=== PATIENT | female | born 1985 | race Hispanic/Latino ===

== ENCOUNTER 2021-12-04 22:48 | Emergency (ER) | payer OTHER ==
--- NOTE | 2021-12-05 01:28 | ER ---
Nurse's Notes [facility] Name: Florencia Baker Age: 36 yrs Sex: Female : 1985 Arrival Date: 12/04/2021 Time: 22:52 Bed 10 Private MD: Diagnosis: SARS-associated coronavirus as the cause of diseases classified elsewhere Presentation: 12/04 23:20 Chief complaint: Patient states: I have been not feeling well for the past two days. I kd3 have had a headache and now I have a cough. a few people at my work have tested positive for covid so I wanted to get checked out. Coronavirus screen: Vaccine status: Patient reports being unvaccinated. Ebola Screen: No symptoms or risks identified at this time. Initial Sepsis Screen: Does the patient meet any 2 criteria? No. Patient's initial sepsis screen is negative. Does the patient have a suspected source of infection? No. Patient's initial sepsis screen is negative. Risk Assessment: Do you want to hurt yourself or someone else? Patient reports no desire to harm self or others. Onset of symptoms was December 04, 2021. 23:20 Method Of Arrival: Ambulatory kd3 23:20 Acuity: KIRTI 4 kd3 Triage Assessment: 23:23 General: Appears in no apparent distress. Behavior is calm, cooperative. Pain: kd3 Complains of pain in headache. 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 - Social history:: Smoking status: unknown. Screenin:24 Abuse screen: Denies threats or abuse. Denies injuries from another. Nutritional kd3 screening: No deficits noted. Tuberculosis screening: No symptoms or risk factors identified. Fall Risk None identified. Assessment: 12/05 01:33 General: Appears in no apparent distress. Behavior is calm, cooperative. kd3 Vital Signs: 12/04 23:20 BP 112 / 79; Pulse 70; Resp 18; Temp 98.2; Pulse Ox 100% on R/A; Weight 61.23 kg; kd3 Height 5 ft. (152.40 cm); Pain 4/10; 12/05 01:33 BP 109 / 71; Pulse 72; Resp 16; Pulse Ox 100% on R/A; kd3 06/28 23:20 Body Mass Index 26.37 (61.23 kg, 152.40 cm) kd3 ED Course: 12/04 22:52 Patient arrived in ED. ja2 23:09 Nishant Her MD is Attending Physician. kdr 23:20 Leticia Galeas, RN is Primary Nurse. kd3 23:23 Triage completed. kd3 23:23 Arm band placed on right wrist. kd3 23:24 Patient has correct armband on for positive identification. kd3 23:24 No provider procedures requiring assistance completed. kd3 12/05 01:33 Patient did not have IV access during this emergency room visit. kd3 Administered Medications: No medications were administered Medication: 12/04 23:24 VIS not applicable for this client. kd3 Outcome: 12/05 01:28 Discharge ordered by . kdr 01:33 Discharged to home ambulatory. kd3 01:33 Condition: stable 01:33 Discharge instructions given to patient, Instructed on discharge instructions, follow up and referral plans. Demonstrated understanding of instructions, follow-up care. 01:34 Patient left the ED. kd3 Signatures: Nishant Her MD MD [facility] Tricia Fowler 2 Leticia Galeas, RN RN kd3
--- NOTE | 2021-12-05 01:28 | EDPHYS ---
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 - Social history:: Smoking status: unknown. Vital Signs: 23:20 BP 112 / 79; Pulse 70; Resp 18; Temp 98.2; Pulse Ox 100% on R/A; Weight 61.23 kg; kd3 Height 5 ft. (152.40 cm); Pain 09/16; 12/05 01:33 BP 109 / 71; Pulse 72; Resp 16; Pulse Ox 100% on R/A; kd3 12/04 23:20 Body Mass Index 26.37 (61.23 kg, 152.40 cm) kd3 MDM: 01:28 Patient medically screened. kdr 12/04 23:11 Order name: Strep; Complete Time: 00:29 mw2 12/04 23:11 Order name: Flu; Complete Time: 00:29 mw2 12/04 23:11 Order name: COVID-19 SARS RT PCR (Document "Date of Onset" if Symptomatic); Complete mw2 Time: 01:08 12/05 00:20 Order name: Throat Culture EDMS Administered Medications: No medications were administered Disposition Summary: 12/05/21 01:28 Discharge Ordered Location: Home kdr Problem: new kdr Symptoms: have improved kdr Condition: Stable kdr Diagnosis - SARS-associated coronavirus as the cause of diseases classified elsewhere kdr Followup: kdr - With: Private Physician - When: 2 - 3 days - Reason: If symptoms return, Further diagnostic work-up, Recheck today's complaints, Continuance of care, Re-evaluation by your physician Discharge Instructions: - Discharge Summary Sheet kdr - COVID-19 kdr - 10 Things You Can Do to Manage Your COVID-19 Symptoms at Home - [facility] kdr - Viral Illness, Adult kdr - COVID-19: Quarantine vs. Isolation - [facility] kdr - Prevent the Spread of COVID-19 if You Are Sick - [facility] kdr Forms: - Medication Reconciliation Form kdr - Thank You Letter kdr Signatures: Dispatcher [employer] Nishant Dennison MD MD kdr Doucette, Kyli RN RN kd3
[2021-12-05 02:38] VITALS: TEMP 98.2; O2SAT 100
[2021-12-05 02:39] VITALS: BP 109/71
== END 2021-12-05 01:34 | disposition home or self-care (01) ==
LOC: ER 22:48
DX: U07.1 COVID-19 (principal)
CPT/HCPCS: 87070; 87081; 87804 ×2; U0003

== ENCOUNTER 2021-12-11 15:35 | Emergency (ER) | payer OTHER ==
--- NOTE | 2021-12-11 16:11 | ER ---
Nurse's Notes [facility] Name: Florencia Baker Age: 36 yrs Sex: Female : 1985 Arrival Date: 12/11/2021 Time: 15:37 Bed 11 Private MD: Diagnosis: Strain of muscle, fascia and tendon at neck level Presentation: 12/11 15:51 Chief complaint: Patient states: COVID + - "coughing so hard I think I injured ld1 something in the left side of my neck.". Coronavirus screen: Client presents with at least one sign or symptom that may indicate coronavirus-19. Standard/surgical mask placed on the client. Ebola Screen: No symptoms or risks identified at this time. Initial Sepsis Screen: Does the patient meet any 2 criteria? No. Patient's initial sepsis screen is negative. Does the patient have a suspected source of infection? No. Patient's initial sepsis screen is negative. Risk Assessment: Do you want to hurt yourself or someone else? Patient reports no desire to harm self or others. Onset of symptoms was December 11, 2021. 15:51 Method Of Arrival: Ambulatory ld1 15:51 Acuity: KIRTI 3 ld1 Triage Assessment: 15:52 General: Appears in no apparent distress. comfortable, Behavior is calm, cooperative, ld1 appropriate for age. Pain: Complains of pain in neck Pain does not radiate. Pain currently is 8 out of 10 on a pain scale. EENT: No signs and/or symptoms were reported regarding the EENT system. Neuro: Level of Consciousness is awake, alert, obeys commands, Oriented to person, place, time, situation. Cardiovascular: Capillary refill < 3 seconds Patient's skin is warm and dry. Respiratory: Airway is patent Respiratory effort is even, unlabored. Musculoskeletal: Reports pain in neck. 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 - Social history:: Smoking status: Patient denies any tobacco usage or history of. Patient/guardian denies using alcohol. Screenin:52 Abuse screen: Denies threats or abuse. Denies injuries from another. Nutritional iw screening: No deficits noted. Tuberculosis screening: No symptoms or risk factors identified. Fall Risk None identified. Assessment: 16:00 General: Appears in no apparent distress. comfortable, Behavior is calm, cooperative. iw Pain: Complains of pain in neck. Neuro: Level of Consciousness is awake, alert, obeys commands, Oriented to person, place, time. Respiratory: Respiratory effort is even, unlabored. 17:01 Reassessment: Patient appears in no apparent distress at this time. Patient and/or jb4 family updated on plan of care and expected duration. Pain level reassessed. Patient is alert, oriented x 3, equal unlabored respirations, skin warm/dry/pink. Vital Signs: 15:51 BP 113 / 81; Pulse 86; Resp 18; Temp 99.0(O); Pulse Ox 99% on R/A; Weight 61.23 kg; ld1 Height 5 ft. 0 in. (152.40 cm); Pain 8/10; 15:51 Body Mass Index 26.37 (61.23 kg, 152.40 cm) ld1 ED Course: 15:37 Patient arrived in ED. mr 15:52 Triage completed. ld1 15:52 Arm band placed on right wrist. ld1 16:00 Pat Redman FNP-C is PHCP. kb 16:00 Kirit Kaur DO is Attending Physician. kb 16:51 Sherry Booker, RN is Primary Nurse. iw 17:01 Patient has correct armband on for positive identification. jb4 17:01 No provider procedures requiring assistance completed. Patient did not have IV access jb4 during this emergency room visit. Administered Medications: 17:01 Drug: TORadol (ketorolac) 30 mg Route: IM; Site: right deltoid; jb4 17:01 Follow up: Response: Medication administered at discharge. jb4 Medication: 17:01 VIS not applicable for this client. jb4 Outcome: 16:10 Discharge ordered by . kb 17:01 Discharged to home ambulatory. jb4 17:01 Condition: stable 17:01 Discharge instructions given to patient, Instructed on discharge instructions, follow up and referral plans. no drinking with medication, no driving heavy equipment, medication usage, Demonstrated understanding of instructions, follow-up care, medications, Prescriptions given X 3. 17:03 Patient left the ED. jb4 Signatures: Pat Redman, ZAY SALDANA-Helen Orantes Irene, RN RN iw Blu Grewal RN RN jb4 Enedelia Tellez RN RN ld1
--- NOTE | 2021-12-11 16:11 | EDPHYS ---
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 - Social history:: Smoking status: Patient denies any tobacco usage or history of. Patient/guardian denies using alcohol. Vital Signs: 15:51 BP 113 / 81; Pulse 86; Resp 18; Temp 99.0(O); Pulse Ox 99% on R/A; Weight 61.23 kg; ld1 Height 5 ft. 0 in. (152.40 cm); Pain 8/10; 15:51 Body Mass Index 26.37 (61.23 kg, 152.40 cm) ld1 MDM: 16:00 Patient medically screened. kb Administered Medications: 17:01 Drug: TORadol (ketorolac) 30 mg Route: IM; Site: right deltoid; jb4 17:01 Follow up: Response: Medication administered at discharge. jb4 Disposition Summary: 12/11/21 16:10 Discharge Ordered Location: Home kb Condition: Stable kb Diagnosis - Strain of muscle, fascia and tendon at neck level kb Followup: kb - With: Emergency Department - When: As needed - Reason: Worsening of condition Followup: kb - With: Private Physician - When: 2 - 3 days - Reason: Recheck today's complaints, Continuance of care, Re-evaluation by your physician Discharge Instructions: - Discharge Summary Sheet kb - Muscle Strain, [id number] kb Forms: - Medication Reconciliation Form kb - Thank You Letter kb - Antibiotic Education kb - Prescription Opioid Use kb - Work release form iw Prescriptions: - Ibuprofen 600 mg Oral Tablet - take 1 tablet by ORAL route every 6 hours As needed take with food; 30 tablet; kb Refills: 0, Product Selection Permitted - Tessalon Perles 100 mg Oral Capsule - take 1 capsule by ORAL route every 8 hours As needed; 15 capsule; Refills: 0, kb Product Selection Permitted - orphenadrine citrate 100 mg Oral Tablet Sustained Release - take 1 tablet by ORAL route 2 times per day As needed; 20 tablet; Refills: 0, kb Product Selection Permitted Signatures: Pat Redman FNP-C FNP-Ckb Bryson, James RN RN jb4 Enedelia Tellez RN RN ld1
[2021-12-11] MEDS ORDERED: KETOROLAC 30 MG/ML INJ ONE (17:03)
[2021-12-11 17:33] VITALS: BP 113/81; TEMP 99; O2SAT 99
== END 2021-12-11 17:03 | disposition home or self-care (01) ==
LOC: ER 15:35
DX: S16.1XXA Strain of muscle, fascia and tendon at neck level, initial encounter (principal)

== ENCOUNTER 2022-11-30 02:12 | Emergency (ER) | payer OTHER ==
--- OUTSIDE RECORDS SUMMARY | 2022-11-30 02:16 | XMS REPORT | Continuity of Care Document ---
:1985 Author Organization [facility] t Address [address] [address] [place] [address] Care Team Providers Name Role Phone GoshenNicky zacarias Attending Clinician Unavailable SOLEDAD JUAREZ M.D. Attending Clinician Unavailable JOSHUA ORDONEZ Attending Clinician [phone] NAILA OJNES Attending Clinician [phone] BRODERICK SAHNI Attending Clinician [phone] [facility], PROVIDER Attending Clinician Unavailable PRISCILLA WU Attending Clinician [phone] CÉSAR LUKE Attending Clinician [phone] NINFA WIN Attending Clinician [phone] BRIGIDO RIVERA Attending Clinician Unavailable Problems Condition Condition Condition Status Onset Resolution Last Treating Co mments Source Name Details Category Date Date Treatment Clinician Date Encounter Encounter Problem Active [facility] for [facility] for repeat [facility] Pap smear Pap smear ans due to due to previous previous insufficie insufficie nt nt cervical cervical cells cells [id number] Low iron Problem Comm on [facility] [id number] Slow Problem Common transit [facility] constipati - [facility] [id number] Strain of Problem Com mon neck [facility] muscle, - [facility] initial [facility] Allergies, Adverse Reactions, Alerts This patient has no known allergies or adverse reactions. Family History Family Member Diagnosis Comments Start Date Stop Date Source Grandmother Family history of malignant [facility] neoplasm of breast Grandmother Family history of malignant [facility] neoplasm of colon aunt Family history of malignant [facility] neoplasm of cervix Mother Family history of malignant [facility] neoplasm of breast Social History Social Habit Start Date Stop Date Quantity Comments Source Sex Assigned At Com mon [facility] History of Tobacco Use Co mmon [facility] Smoking Status Start Date Stop Date Source Unknown if ever smoked [facility] Never Smoker [facility] Medications Ordered Filled Start Stop Current Ordering Indication Dosage Frequency Signature Comments Components Source Medication Medication Date Date Medication? Clinician (SIG) Name Name No Known No Known No Common Medications Medications [facility] No Known No Known No Common Medications Medications [facility] Vital Signs Vital Name Observation Time Observation Value Comments Source height 2022-02-13 59.5 [in_i] [facility] [place] [facility] weight 2022-02-13 134.8 [lb_av] [facility] [place] [facility] temperature 2022-02-13 97.9 [degF] [facility] [place] 14:[facility]00 [facility] bmi 2022-02-13 26.77 kg/m2 [facility] [place] 14:[facility]00 [facility] oximetry 2022-02-13 100 % [facility] [place] 14:[facility] respiratory rate 2022-02-13 16 /min [facility] - 14:00:00 [facility] blood pressure 2022-02-13 98 mm[Hg] [facility] [place] - systolic 14:00:00 [facility] blood pressure 2022-02-13 56 mm[Hg] [facility] height 2021-12-20 [facility] - 15:20:00 [facility] weight 2021-12-20 131.2 [lb_av] [facility] [place] 15:20:00 [facility] temperature 2021-12-20 97.2 [degF] [facility] [place] 15:20:00 [facility] bmi 2021-12-20 26.05 kg/m2 [facility] - [facility] oximetry 2021-12-20 100 % [facility] [place] 15:20:00 [facility] respiratory rate 2021-12-20 16 /min [facility] - 15:20:00 [facility] blood pressure 2021-12-20 100 mm[Hg] [facility] - systolic 15:20:00 [facility] blood pressure 2021-12-20 65 mm[Hg] [facility] - diastolic 15:20:00 [facility] Systolic blood 2020-02-21 110 mm[Hg] Location: [facility] Physicia ns pressure 14:32:00 Position: Sitting Diastolic blood 2020-02-21 70 mm[Hg] Location: [facility] Physici ans pressure 14:32:00 Position: Sitting Body height 2020-02-21 60 [in_us] [facility] 14:32:00 Weight 2020-02-21 125 [lb_av] [facility] 14:32:00 Body mass index 2020-02-21 24.41 kg/m2 [facility] (BMI) [Ratio] 14:32:00 Body temperature 2020-02-21 98.5 [degF] Method: [facility] 14:32:00 Temporal Heart Rate 2020-02-21 68 /min [facility] 14:32:00 Body height 2018-08-10 60.00 [in_us] [facility] 09:25:00 Patient Body Weight 2018-08-10 117.60 [lb_av] [facility] 09:25:00 Int[facility] 2018-08-10 106 mm[Hg] [facility] Systolic 09:25:00 Intravascular 2018-08-10 60 mm[Hg] [facility] Diastolic 09:25:00 Heart Beat 2018-08-10 66 /min [facility] 09:25:00 Body Temperature 2018-08-10 97.70 [degF] [facility] 09:25:00 Respiratory Rate 2018-08-10 16 /min [facility] 09:25:00 Body mass index 2018-08-10 23.00 kg/m2 [facility] 09:25:00 Body height 2017-03-19 60.00 [in_us] [facility] 15:12:00 Patient Body Weight 2017-03-19 120.60 [lb_av] [facility] 15:12:00 Intravascular 2017-03-19 101 mm[Hg] [facility] Systolic 15:12:00 Intravascular 2017-03-19 55 mm[Hg] [facility] Diastolic 15:12:00 Heart Beat 2017-03-19 63 /min [facility] 15:12:00 Body Temperature 2017-03-19 96.40 [degF] [facility] 15:12:00 Respiratory Rate 2017-03-19 18 /min [facility] 15:12:00 Body mass index 2017-03-19 23.60 kg/m2 [facility] 15:12:00 Body height 2017-02-27 60.00 [in_us] [facility] 16:50:00 Patient Body Weight 2017-02-27 120.00 [lb_av] [facility] 16:50:00 Intravascular 2017-02-27 91 mm[Hg] [facility] Systolic 16:50:00 Intravascular 2017-02-27 50 mm[Hg] [facility] Diastolic 16:50:00 Heart Beat 2017-02-27 78 /min [facility] 16:50:00 Body Temperature 2017-02-27 96.90 [degF] [facility] 16:50:00 Respiratory Rate 2017-02-27 18 /min [facility] 16:50:00 Body mass index 2017-02-27 23.40 kg/m2 [facility] 16:50:00 Intravascular 2016-12-30 92 mm[Hg] [facility] Systolic 11:12:00 Intravascular 2016-12-30 56 mm[Hg] [facility] Diastolic 11:12:00 Heart Beat 2016-12-30 67 /min [facility] 11:04:00 Body Temperature 2016-12-30 97.40 [degF] [facility] 11:04:00 Respiratory Rate 2016-12-30 16 /min [facility] 11:04:00 Body mass index 2016-12-30 22.70 kg/m2 [facility] 11:04:00 Body height 2016-12-30 60.00 [in_us] [facility] 11:04:00 Patient Body Weight 2016-12-30 116.41 [lb_av] [facility] 11:04:00 Intravascular 2016-12-30 93 mm[Hg] [facility] Systolic 11:04:00 Intravascular 2016-12-30 52 mm[Hg] [facility] Diastolic 11:04:00 Body height 2016-03-20 60.00 [in_us] [facility] 11:28:00 Patient Body Weight 2016-03-20 114.80 [lb_av] [facility] 11:28:00 Intravascular 2016-03-20 103 mm[Hg] [facility] Systolic 11:28:00 Intravascular 2016-03-20 69 mm[Hg] [facility] Diastolic 11:28:00 Heart Beat 2016-03-20 62 /min [facility] 11:28:00 Body Temperature 2016-03-20 96.90 [degF] [facility] 11:28:00 Respiratory Rate 2016-03-20 16 /min [facility] 11:28:00 Body mass index 2016-03-20 22.40 kg/m2 [facility] 11:28:00 Procedures Procedure Date / Time Performed Performing Clinician Sourc e DENTAL PROPHYLAXIS ADULT 2019-05-04 00:[facility] ADMINISTRATOR-CONTROL 2019-05-04 00:00:[facility] CARIES ORAL HYGIENE INSTRUCTION 2019-05-04 00:00:[address] [facility] TOPICAL FLUORIDE VARNISH 2019-05-04 00:00:00 [facility] SR[facility] RESINBASED CMPST 2019-05-04 00:00:00 [facility] TREATMENT COMPLETED 2019-05-04 00:00:00 [facility] PERIODIC ORAL EVALUATION 2019-04-20 00:00:[address] [facility] DENTAL BITEWINGS FOUR FILMS 2019-04-20 00:00[facility] PERI[facility] FIRST 2019-04-20 00:00:00 A [facility] INTRAORAL PERIAPICAL EA ADD 2019-04-20 00:00[facility] D[facility] PANORAMIC FILM 2019-04-20 00:00:00 [facility] TREATMENT INITIATED 2019-04-20 00:00:00 [facility] of [facility]domin[facility] of Tubal Ligation [facility] of Tubal ligation [facility] reversal Encounters Start End Encounter Admission Attending Care Care Encounter Source Date/Time Date/Time Type Type Clinicians Facility Department ID 2021-12-20 Outpatient [place], [facility] [id number] Common 14:37:02 [facility] 2022-03-19 2022-03-19 (TEL) [facility] [id number] Co mmon 00:00:00 00:00:00 [facility] 2022-02-13 2022-02-13 PREV VISIT [facility] [id number] Common 00:00:00 00:00:00 EST AGE [facility] 18-40 - [facility] 2021-12-20 2021-12-20 OFFICE [facility] [id number] Co mmon 00:00:00 00:00:00 VISIT NEW [facility] it PT LEVEL [address] [facility] 2020-02-21 2020-02-21 Appointjoshua JUAREZ ДМИТРИЙ CHOE [id number] [facility] 15:00:00 15:00:00 t; SOLEDAD JUAREZ, Mohsen Genao M.D. 2019-05-04 2019-05-04 Outpatient ORDONEZ, [facility] [id number] [facility] 08:00:00 08:00:00 JOSHUA 45-7f9o-g0y [id number] ealth [id number] 2019-05-04 2019-05-04 Outpatient ESCONDIDO, [facility] [id number] [facility] 07:00:00 07:00:00 NAILA 45-1n9e-t8f 151-466a-a ealth [id number] 2019-04-20 2019-04-20 Outpatient ESCONDIDO, [facility] [id number] [facility] 07:00:00 07:00:00 NAILA 45-9v6a-y4a d64-5a91-5 ealth [id number] 2018-08-13 2018-08-13 Outpatient SAHNIBRODERICK [facility] [id number] [facility] 00:00:00 00:00:00 e2-2zl2-75p x56-2n92-4 ealth 0-bj8dut465 y30-4w1j3c 0f4 [id number] 2018-08-11 2018-08-11 Outpatient SAHNI, BRODERICK [facility] [id number] [facility] 00:00:00 00:00:00 [facility]4jc9-34u [facility]400d[facility] 0-fg1siq084 9ad-d0a3de 0f4 [id number] 2018-08-10 2018-08-10 Outpatient [facility] [id number] [facility] 00:00:00 00:00:00 H, PROVIDER ea lth 2018-08-10 2018-08-10 Outpatient [facility] [id number] [facility] 00:00:00 00:00:00 H, PROVIDER e2-5mj6-73j 0a1-4a d2-b ealt 0-zj0usb661 [id number] 0f4 3f33e3 2018-08-10 2018-08-10 Outpatient SAHNI, BRODERICK [facility] [id number] [facility] 00:00:00 00:00:00 e2-5vb7-21l z36-52yf-w ealt 0-kj2nzd951 1cb-3f4bbe 0f4 [id number] 2017-03-30 2017-03-30 Outpatient ATILADE, [facility] [id number] [facility] 00:00:00 00:00:00 PRISCILLA Chavarria e2-7cc4-91q n9h-6sy9- b ealt 0-hl0wob828 bad-1979ab 0f4 44f4fc 2017-03-27 2017-03-27 Outpatient ATILADE, [facility] [id number] [facility] 00:00:00 00:00:00 PRISCILLA G e2-0xc4-77g 81c-4a92- 8 ealt 0-ws8vbn137 0l4-ca8uc9 0f4 83a52b 2017-03-25 2017-03-25 Outpatient ATILADE, [facility] [id number] [id number] [facility] 00:00:00 00:00:00 PRISCILLA G e2-4ui5-29k 79a-4d61- b ealth 0-ka2yjs017 [id number] 0f4 [id number] 2017-03-22 2017-03-22 Outpatient [facility] [id number] [facility] 00:00:00 00:00:00 H, PROVIDER [facility] 2017-03-22 2017-03-22 Outpatient [facility] [id number] [facility] 00:00:00 00:00:00 H, PROVIDER e2-3ql0-13h aa9-4e d4-9 ealth 0-qa9thv424 [id number]-[id number] 0f4 [id number] 2017-03-22 2017-03-22 Outpatient ATILADE, [facility] [id number] [facility] 00:00:00 00:00:00 PRISCILLA Chavarria e2-5db8-69h a7x-393g- 8 ealth 0-gz8jbr675 [id number] 0f4 [id number] 2017-03-20 2017-03-20 Outpatient ATILADE, [facility] [id number] [facility] 00:00:00 00:00:00 PRISCILLA Chavarria e2-3lu5-36z 8w6-5226- b ealth 0-iz0pky249 o95-04qp9c 0f4 fb4fdd 2017-03-19 2017-03-19 Outpatient ATILADE, [facility] [id number] [facility] 15:12:00 15:12:00 PRISCILLA Chavarria e2-7wo9-15s 304-4f96- 8 ealth 0-pk8jme073 [id number] 0f4 8d05bd 2017-03-19 2017-03-19 Outpatient [facility] [id number] [facility] 00:00:00 00:00:00 H, PROVIDER [facility] 2017-03-19 2017-03-19 Outpatient [facility] [id number] [facility] 00:00:00 00:00:00 H, PROVIDER e2-4bh8-32m 721-43 c1-9 ealth 0-bl4elk908 995-[id number] 0f4 [id number] 2017-03-04 2017-03-04 Outpatient LUKE, [facility] [id number] [facility] 00:00:00 00:00:00 GAYTARI e2-6lp5-31r 841-42f8-a ealth 0-uf0grp272 [id number] 0f4 7fecca 2017-02-27 2017-02-27 Outpatient TI, [facility] [id number] [facility] 16:50:00 16:50:00 GAYTARI e2-5wm6-41i 39f-45ac-b ealth 0-zh0vyk854 d00-r0vd3x 0f4 6facc8 2017-02-27 2017-02-27 Outpatient [facility] [id number] [facility] 00:00:00 00:00:00 H, PROVIDER [facility] 2017-02-27 2017-02-27 Outpatient [facility] [id number] [facility] 00:00:00 00:00:00 H, PROVIDER e2-9lg4-10v 1db-41 1b-a ealth 0-cb7bbt213 [id number] 0f4 5ec83f 2016-12-30 2016-12-30 Outpatient WIN, [facility] [id number] [facility] 11:04:00 11:04:00 NINFA e2-4ft5-76f 036-4074-8 ealth 0-fv9rsr705 h27-sv27tk 0f4 bffab5 2016-12-30 2016-12-30 Outpatient [facility] [id number] [facility] 00:00:00 00:00:00 H, PROVIDER [facility] 2016-12-30 2016-12-30 Outpatient [facility] [id number] [facility] 00:00:00 00:00:00 H, PROVIDER e2-3wu5-67j 370-4a da-9 ealth 0-iw5kkb523 65b-8aa7e9 0f4 [id number] 2016-03-26 2016-03-26 Outpatient SHANKS, [facility] [id number] [facility] 00:00:00 00:00:00 BRIGIDO e2-5yo7-82c 88d-4894-a ealth 0-ys5wjx129 240-cfabf1 0f4 3a20c5 2016-03-22 2016-03-22 Outpatient SHANKS, [facility] [id number] [id number] [facility] 00:00:00 00:00:00 BRIGIDO e2-2qu5-92j 046-450d-9 ealth 0-nz2otj755 n4o-f863f9 0f4 [id number] 2016-03-20 2016-03-20 Outpatient SHANKS, [facility] [id number] [facility] 11:28:00 11:28:00 BRIGIDO e2-1xy2-35y 530-480d-b ealth 0-wl1tbb889 [id number] 0f4 0d7f7a 2016-03-20 2016-03-20 Outpatient [facility] [id number] [facility] 00:00:00 00:00:00 H, PROVIDER [facility] 2016-03-20 2016-03-20 Outpatient [facility] [id number] [id number] [facility] 00:00:00 00:00:00 H, PROVIDER milan-4eo8-91b 292-4d 5c-b ealth 0-mc5wef550 [id number] 0f4 [id number] 2010-10-04 2010-10-04 Outpatient [facility] [id number] [facility] 00:00:00 00:00:00 H, PROVIDER [facility] 2010-10-04 2010-10-04 Outpatient [facility] [id number] [facility] 00:00:00 00:00:00 H, PROVIDER milan-7ig2-30d a26-4e 37-8 ealth 0-vi5koa997 [id number] 0f4 [id number] 7553-01-11 2010-06-19 Outpatient [facility] [id number] [facility] 00:00:00 00:00:00 H, PROVIDER [facility] 2010-06-19 2010-06-19 Outpatient [facility] [id number] [facility] 00:00:00 00:00:00 H, PROVIDER everardo3ni3-18n 85d-4c 23-a [facility] 0-nh8ugc697 [id number]-[id number] 0f4 [id number] 2010-05-29 2010-05-29 Outpatient [facility] [id number] Access 00:00:00 00:00:00 H, PROVIDER [facility] 2010-05-29 2010-05-29 Outpatient [facility] [id number] [facility] 00:00:00 00:00:00 H, PROVIDER everardo8hx8-62f 497-4b f9-b [facility] 0-xq3rhh491 [id number] 0f4 [id number] 2010-03-30 2010-03-30 Outpatient [facility] [id number] [facility] 00:00:00 00:00:00 H, PROVIDER [facility] 2010-03-30 2010-03-30 Outpatient [facility] [id number] [facility] 00:00:00 00:00:00 H, PROVIDER everardo2ll6-84g c37-4b 67-b [facility] 0-wk3zvx094 [id number] 0f4 [id number] 2010-03-07 2010-03-07 Outpatient [facility] [id number] [facility] 00:00:00 00:00:00 H, PROVIDER [facility] 2010-03-07 2010-03-07 Outpatient [facility] [id number] [facility] 00:00:00 00:00:00 H, PROVIDER everardo7eo8-96o 9b6-49 25-a [facility] 0-jb2qbw400 [id number] 0f4 [id number] 2010-02-02 2010-02-02 Outpatient [facility] [id number] [facility] 00:00:00 00:00:00 H, PROVIDER [facility] 2010-02-02 2010-02-02 Outpatient [facility] [id number] [facility] 00:00:00 00:00:00 H, PROVIDER everardo4gm7-41m e93-4d 9b-a [facility] 0-uh0yca467 bf9-2f9af7 0f4 [id number] 2010-01-15 2010-01-15 Outpatient [facility] [id number] [facility] 00:00:00 00:00:00 H, PROVIDER [facility] 2010-01-15 2010-01-15 Outpatient [facility] [id number] [facility] 00:00:00 00:00:00 H, PROVIDER everardo0qe5-26a 0e7-46 c7-b [facility] 0-fw7hxi814 [id number]-[id number] 0f4 [id number] 2009-10-31 2009-10-31 Outpatient [facility] [id number] [facility] 00:00:00 00:00:00 H, PROVIDER [facility] 2009-10-31 2009-10-31 Outpatient [facility] [id number] [facility] 00:00:00 00:00:00 H, PROVIDER everardo4mx7-90y 2a7-45 39-8 [facility] 0-zf8ppj621 [id number] 0f4 [id number] 2009-08-31 2009-08-31 Outpatient [facility] [id number] [facility] 00:00:00 00:00:00 H, PROVIDER [facility] 2009-08-31 2009-08-31 Outpatient [facility] [id number] [facility] 00:00:00 00:00:00 H, PROVIDER everardo4yi6-74o 642-44 27-8 [facility] 0-eq1cck708 [id number] 0f4 2009-08-10 2009-08-10 Outpatient [facility] [id number] [facility] 00:00:00 00:00:00 H, PROVIDER [facility] 2009-08-10 2009-08-10 Outpatient [facility] [id number] [facility] 00:00:00 00:00:00 H, PROVIDER e2-1gx7-74l ded-4e 67-8 [facility] 0-lk3qae543 [id number] 0f4 [id number] 2009-07-20 2009-07-20 Outpatient [facility] [id number] [facility] 00:00:00 00:00:00 H, PROVIDER jarrett [facility] 2009-07-20 2009-07-20 Outpatient [facility] [id number] [facility] 00:00:00 00:00:00 H, PROVIDER milan-1nz7-41f 106-4c f6-8 [facility] 0-bh4juv568 [id number] 0f4 [id number] 2009-06-21 2009-06-21 Outpatient [facility] [id number] [facility] 00:00:00 00:00:00 H, PROVIDER jarrett [facility] 2009-06-21 2009-06-21 Outpatient [facility] [id number] [facility] 00:00:00 00:00:00 H, PROVIDER e2-4pn0-29x 149-4b ca-9 [facility] 0-mx0nzg666 [id number] 0f4 [id number] Results Test Description Test Time Test Comments Results Result Comments Source CULTURE, STOOL 2022-10-19 SPECIMEN NUMBER: 11:01:47 [id number] CULTURE, STOOL SPECIMEN NUMBER: [id number] SOURCE: STOOL REPORT STATUS: FINAL FINAL REPORT: 10/19/2022 NORMAL ENTERIC CORINA RECOVERED. NO SALMONELLA, SHIGELLA, CAMPYLOBACTER, AEROMONAS OR PLESIOMONAS CULTURED. UNLESS OTHERWISE INDICATED, ALL TESTING PERFORMED AT [facility] [address] [place] [address] DRESSMAKER GARMENT FITTER: DAMON SAUCEDA M.D. CLIA NUMBER [id number] [place]. [id number] HIV 1/2 4TH GEN, RFLX CONF 2022-10-16 06:47:04 Test Item Value Reference Range Interpretation Comme nts HIV 1/2 4TH GEN, RFLX CONF (test code = 3514) NON-REACTIVE NON-REAC TIVE PATHOLOGIST SMEAR [id number] 06:10:55 Test Item Value Reference Interpretation Comments Range DIAGNOSIS: (test (NOTE) PERIPHERAL BLOOD SMEAR code = 8200) REVIEW:Striking eosinophilia. S ee Comment. COMMENTS: (test (NOTE) In summary, the CBC shows code = 8205) eosinophilia. T his has a broad different ialdiagnosis. Most commonly, this may be due to allergic disorders(asthm a, eczema, atopy, rhinitis , etc.), parasitic infec tions, fungalinfection s, or a variety of drug s and toxins (phenothiazines ,penicillins, sulfonamides, p henytoin, etc.) Other cau ses includegastroin testinal disease such as inflammatory bowel disease o rallergic esophagitis, co llagen vascular diseas e, immunodeficienc ysyndromes, pulmonary eosin ophilias (hypersensitivi ty pneumonitis,Reeves rg Jevon, etc.), with cer tain malignancies, o r as a primarymarrow a bnormality (polycythemia v era, chronic myeloproliferat ivedisorders, idiopathic hype reosinophilic syndrome, etc.) . Clinicalcorrela tion may be informative. MICROSCOPIC (NOTE) Please see a CB C dated DESCRIPTION: (test 10/15/2022 for hematologic code = 8210) parameters. Exa mination of the peripheral smear reveals a normocytic an dnormochromic red cell popula tion without anemia or morphologicabno rmalities. White blood robert ls are quantitatively within normallimits an d demonstrate a striking eosi nophilia with otherwise ivonne lleukocyte morphology. Teddy sts are not increased and n o significantdysp lastic changes or atyp ical lymphocytes are identified. There isno sign ificant granulocytic le ft shift. Platelets are w ithin normallimits. ( ks; 10/16/22) PATHOLOGIST: (test (NOTE) Ginna Sauceda, code = 8250) Mohsen (chuck hinkle signed) DiplomateEdwar [facility] Board of Pathology with Subspecialty Certification, Hematology CPT: (test code = 05064 [id number]) WBC (test code = 7.7 K/UL 3.5-11.0 1001) RBC (test code = 3.85 M/UL 3.80-5.40 1002) HEMOGLOBIN (test 12.3 G/DL 11.5-15.5 code = 1003) HEMATOCRIT (test 36.3 % 34.0-45.0 code = 1004) MCV (test code = 94.3 fL 80.0-99.0 1005) MCH (test code = 31.9 PG 25.0-33.0 1006) MCHC (test code = 33.9 G/DL 31.0-36.0 1007) RDW (test code = 12.5 % 11.5-15.0 1038) NEUTROPHILS (test 39.7 % AUTOMATED DIFFERENTIAL code = 1008) CONFIRMED WITH MANUAL SLIDE REVIEW. LYMPHOCYTES (test 24.1 % code = 1010) MONOCYTES (test 4.6 % code = 1011) EOSINOPHILS (test 31.0 % code = 1012) BASOPHILS (test 0.5 % code = 1013) IMMATURE 0.1 % GRANULOCYTES (test code = 1036) NUCLEATED RBCS 0.0 /100 See_Comment [Automated m essage] The (test code = 1065) WBC'S system [facility] generated this result transmit prisca reference range: 0.0. The reference range was not u sed to interpret this result as normal/abnormal . PLATELET COUNT 348 K/UL 130-400 (test code = 1015) ABSOLUTE 3.04 K/UL 1.50-7.50 NEUTROPHILS (test code = 1066) ABSOLUTE 1.85 K/UL 1.00-4.00 LYMPHOCYTES (test code = 1067) ABSOLUTE MONOCYTES 0.35 K/UL 0.20-1.00 (test code = 1068) ABSOLUTE 2.38 K/UL 0.00-0.50 H EOSINOPHILS (test code = 1040) ABSOLUTE BASOPHILS 0.04 K/UL 0.00-0.20 (test code = 1069) ABS IMMATURE 0.01 K/UL 0.00-0.10 GRANULOCYTES (test code = 1020) ABS NUCLEATED RBCS 0.00 K/UL 0.00-0.11 (test code = 48302) COMMENTS (test (NOTE) NO SPECIFIC RBC code = 1016) ABNORMALITIES I DENTIFIED PLATELETS APPEA R NORMAL UNLESS OTHERWIS E INDICATED, ALL TESTING PER FORMED AT CLINICAL PATHOL [employer], [place]. [address] [place] [address] [phone] LABORATORY DIRE CTOR: DAMON FISHER M.D. CLIA NUMBER [id number] CAP ACCREDITATION N O. [id number] VITAMIN [id number] 03:58:41 Test Item Value Reference Range Interpretation Comments VITAMIN B-12 (test code = 2840) 798 PG/ML 200-950 [Q] [id number] 00:00:00 Test Item Value Reference Range Interpretation Comments CLINICAL See Comment N None given INFORMATION: (test code = CLINICAL INFORMATION:) LMP: (test code = See Comment N 02/20/2020 LMP:) PREV. PAP: (test See Comment N NONE GIVEN code = PREV. PAP:) PREV. BX: (test See Comment N NONE GIVEN code = PREV. BX:) SOURCE: (test See Comment N Cervix, Endoce rvix code = SOURCE:) STATEMENT OF See Comment Specimen proces sed and ADEQUACY: (test examined, code = STATEMENT butunsatisf actory for OF ADEQUACY:) evaluation due levy insufficient nu mber of squamouscells. INTERPRETATION/RE See Comment Unable to provide SULT: (test code interpretat ion due = 29158-4) tounsatisfactor y specimen adequacy. COMMENT:; Normal See Comment N This case c ould not be (test code = evaluated with 36238-3) computerassiste d technology. The slide was manuallyscreene d according to vitaliy andrews procedures.Sugg est clinical correl ation and follow-up ascli nically appropriate CUSTOMER MARKETING MANAGER: See Comment N SJC, CT( CP)CT screening (test code = location: [place] CUSTOMER MARKETING MANAGER: [id number] [facility] ) [place] [id number] REVIEW See Comment N ABS, CT(ASCP)CT screening CUSTOMER MARKETING MANAGER: location: [place] (test code = [id number] [facility] REVIEW [place] [id number] CUSTOMER MARKETING MANAGER: ) See Comment (test See Comment EXPLANATOR Y NOTE: The Pap code = See is a screening test for Comment) cervical cancer . It is not a diagnosti c test and is subject to f alse negative and fa lse positive result s. It is most reliable w hen a satisfactory sa mple, regularly obtai roma, is submitted with relevant clinical findin gs and history, and wh en the Pap result is evalu ated along with historic a nd current clinical inform ation. [facility][Q] HPV mRNA E6/E7 REFLEX TO HPV 16,18/45 QNS [id number] 00:00:00 Test Item Value Reference Range Interpretation Comments HPV mRNA E6/E7 Not Detected Not Detected N This test was performed (test code = using the APTIM A HPV Assay HPV mRNA E6/E7) (Gen-Probe I nc.). This assay detects E 6/E7 viral messenger RNA ( mRNA) from 14high-risk HPV types (16,18,31,33,35 ,39,45,51,5 2,56,58,59,66,6 8). The analytical perf ormance characteristics ofthis assay have been determined by [employer]. The modifications h ave not beencleared or approved by the FDA. This a ssay hasbeen validat ed pursuant to the CLIA reg [facility] is used for cli nical purposes. [facility]
[2022-11-30] MEDS ORDERED: NA CHLORIDE 0.9% 1,000 ML ONE (03:33)
[2022-11-30 03:35] LABS: Absolute Lymphocytes (CBC) 1.2 K/uL (0.7-4.9); Hematocrit 34.5 % (36.0-45.0); Lymphocytes % 13.2 % (15.3-44.8); MCV 94.3 fL (80-100); MPV 7.4 fL (7.6-11.3); RBC Red Blood Cell Count 3.66 M/uL (3.86-4.86); Specific Gravity 1.011 (1.005-1.030); Urine Bilirubin NEGATIVE (Negative); Urine Blood Negative (Negative); Urine Clarity Clear (Clear); Urine Color Yellow (Yellow); Urine Glucose NEGATIVE (Negative); Urine Protein NEGATIVE (Negative); Urine Urobilinogen Normal (Normal); Urine pH 6.5 (5.0-7.0)
[2022-11-30 03:40] LABS: Specific Gravity 1.011 (1.005-1.030)
[2022-11-30 03:56] LABS: Albumin 3.3 g/dL (3.4-5.0); Bilirubin Total 0.2 mg/dL (0.2-1.0); Potassium 3.8 mEq/L (3.5-5.1); Protein, Total 6.8 g/dL (6.4-8.2)
--- NOTE | 2022-11-30 10:09 | ER ---
Nurse's Notes [facility] Name: Amber Baker Age: 37 yrs Sex: Female : 1985 Arrival Date: 11/30/2022 Time: 02:12 Bed 11 Private MD: Diagnosis: Abdominal pain, unspecified;Incomplete spontaneous without complication;Other ovarian cysts Presentation: 11/30 02:53 Chief complaint: Patient states: LLQ pain of 5, bilateral lower back pain of 5,onset 2 pf1 weeks, also discomfort with urination for 2 weeks, worse in the past 3 days. Patient stated had a miscarriage 2 weeks ago, G5 ,P3, A2. Patient denies any vaginal bleeding at this time. Patient stated LBM was [employer] with normal soft stool. Coronavirus screen: Vaccine status: Patient reports being unvaccinated. Client denies travel out of the [place] in the last 14 days. At this time, the client does not indicate any symptoms associated with coronavirus-19. Ebola Screen: Patient negative for fever greater than or equal to 101.5 degrees Fahrenheit, and additional compatible Ebola Virus Disease symptoms. Initial Sepsis Screen: Does the patient meet any 2 criteria? No. Patient's initial sepsis screen is negative. Does the patient have a suspected source of infection? No. Patient's initial sepsis screen is negative. Risk Assessment: Do you want to hurt yourself or someone else? Patient reports no desire to harm self or others. 02:53 Method Of Arrival: Ambulatory pf1 02:53 Acuity: KIRTI 3 pf1 - Family history:: not pertinent. Screenin:02 [facility] ED Fall Risk Assessment (Adult) History of falling in the last 3 months, pf1 including since admission No falls in past 3 months (0 pts) Confusion or Disorientation No (0 pts) Intoxicated or Sedated No (0 pts) Impaired Gait No (0 pts) Mobility Assist Device Used No (0 pt) Altered Elimination No (0 pt) Score/Fall Risk Level 0 - 2 = Low Risk Oriented to surroundings, Maintained a safe environment, Educated pt \T\ family on fall prevention, incl call for assistance when getting out of bed, Assessed \T\ reinforced patient's understanding of fall precautions, Provided non-skid footwear, Hourly rounding (assess needs \T\ fall precautionary measures) done, Used ambulatory aids as needed (educated on \T\ assisted with), Used gait belt as appropriate. Abuse screen: Denies threats or abuse. Nutritional screening: No deficits noted. Tuberculosis screening: No symptoms or risk factors identified. Assessment: 03:06 General: Appears in no apparent distress. comfortable, well groomed, well developed, pf1 Behavior is calm, cooperative, appropriate for age, quiet. Pain: Complains of pain in LLQ and lower back pain Pain currently is 5 out of 10 on a pain scale. Neuro: No deficits noted. Level of Consciousness is awake, alert, obeys commands, Oriented to person, place, time, situation. Cardiovascular: No deficits noted. Capillary refill < 3 seconds Patient's skin is warm and dry. Respiratory: No deficits noted. Airway is patent Respiratory effort is even, unlabored, Respiratory pattern is regular, symmetrical. GI: Abdomen is flat, non-distended, Bowel sounds present X 4 quads. Abd is soft and non tender X 4 quads. : Reports dysuria. : Reports miscarriage approximately 2 weeks ago, with discomfort after urination. EENT: No deficits noted. No signs and/or symptoms were reported regarding the EENT system. 04:00 Reassessment: Patient appears in no apparent distress at this time. Patient and/or pf1 family updated on plan of care and expected duration. Pain level reassessed. Patient is alert, oriented x 3, equal unlabored respirations, skin warm/dry/pink. Patient states symptoms have not improved. 05:00 Reassessment: Patient appears in no apparent distress at this time. Patient and/or pf1 family updated on plan of care and expected duration. Pain level reassessed. Patient is alert, oriented x 3, equal unlabored respirations, skin warm/dry/pink. Patient states symptoms have improved. 06:00 Reassessment: Patient appears in no apparent distress at this time. Patient and/or pf1 family updated on plan of care and expected duration. Pain level reassessed. Patient is alert, oriented x 3, equal unlabored respirations, skin warm/dry/pink. Patient states feeling better. 07:00 Reassessment: Patient appears in no apparent distress at this time. Patient and/or pf1 family updated on plan of care and expected duration. Pain level reassessed. Patient is alert, oriented x 3, equal unlabored respirations, skin warm/dry/pink. Patient states symptoms have improved. Vital Signs: 02:53 BP 106 / 69; Pulse 66; Resp 18; Temp 98.1; Pulse Ox 100% on R/A; Weight 58.97 kg; pf1 Height 5 ft. 0 in. ; Pain 5/10; 05:00 BP 99 / 65; Pulse 75; Resp 16; Pulse Ox 100% ; pf1 06:00 BP 100 / 57; Pulse 71; Resp 16; Pulse Ox 99% ; pf1 07:00 BP 107 / 65; Pulse 65; Resp 16; Pulse Ox 100% on R/A; pf1 02:53 Body Mass Index 25.39 (58.97 kg, 152.4 cm) pf1 02:53 Pain Scale: Adult pf1 ED Course: 02:15 Patient arrived in ED. jj6 02:41 Jose Allen MD is Attending Physician. sp4 03:02 Triage completed. pf1 03:05 Patient has correct armband on for positive identification. pf1 03:17 Radiology exam delayed due to lab results not completed at this time. (BUN/Creatinine) nj test not completed at this time. IV insertion attempt and/or patient not having appropriate IV at this time. 03:25 Inserted saline lock: 20 gauge in right antecubital area, using aseptic technique. rv1 Blood collected. 07:03 US Pelvis Complete In Process Unspecified. EDMS 07:07 Sherry Booker, RN is Primary Nurse. iw 07:34 CT Abd/Pelvis - IV Contrast Only In Process Unspecified. EDMS 09:30 Attending Physician role handed off by Jose Allen MD filemon 09:30 Huy Nazario MD is Attending Physician. filemon 09:51 HCG-Quantitative Sent. iw 10:08 Екатерина Mcduffie MD is Referral Physician. filemon Administered Medications: 03:28 Drug: NS 0.9% IV 1000 ml Route: IV; Rate: 1 bolus; Site: right antecubital; cg 04:30 Follow up: Response: No adverse reaction; Marked relief of symptoms; IV Status: pf1 Completed infusion; IV Intake: 1000ml Intake: 04:30 IV: 1000ml; Total: 1000ml. pf1 Outcome: 10:08 Discharge ordered by . filemon 10:51 Patient left the ED. iw Signatures: Dispatcher [employer] EDMS Huy Nazario MD MD cha Williams, Irene, RN RN iw Garcia, Cindy, RN RN cg Jordan, Nathan nj Jeffries, Jennifer jj6 Lianne Thompson RN RN pf1 Michael, Ana rv1 Jose Allen MD MD sp4 Corrections: (The following items were deleted from the chart) 03:05 02:53 Chief complaint: Patient states: LLQ pain of 5, bilateral lower back pain of pf1 5,onset 2 weeks, also discomfort with urination for 2 weeks, worse in the past 3 days. Patient stated had a miscarriage 2 weeks ago, G5 ,P3, A2. Patient stated LBM was [employer] with normal soft stool. pf1
--- NOTE | 2022-11-30 10:09 | EDPHYS ---
Physician Documentation [facility] Name: Amber Baker Age: 37 yrs Sex: Female : 1985 Arrival Date: 11/30/2022 Time: 02:12 Bed 11 Private MD: SIRI Physician Huy Nazario HPI: 11/30 02:41 This 37 yrs old Female presents to ER via Unassigned with complaints of sp4 Abdominal Pain, Low Back Pain, RECENT MISCARRIAGE. 02:48 37-year-old female with history of recent miscarriage on 11/19/2022. Presents with sp4 lower abdominal pain and left flank pain starting on Friday 3 days ago. Patient reported dark urine. And constipation. Denied vomiting or fever. Patient has history of IBS. History of 1 ectopic in 2014. No history of abdominal surgery.. - Family history:: not pertinent. ROS: 02:48 Constitutional: Negative for fever, chills, and weight loss, Eyes: Negative for injury, sp4 pain, redness, and discharge, ENT: Negative for injury, pain, and discharge, Neck: Negative for injury, pain, and swelling, Cardiovascular: Negative for chest pain, palpitations, and edema, Respiratory: Negative for shortness of breath, cough, wheezing, and pleuritic chest pain, Abdomen/GI: Negative for nausea, vomiting, diarrhea, positive for abdominal pain and constipation Back: Negative for injury and pain, : Negative for injury, bleeding, discharge, and swelling, MS/Extremity: Negative for injury and deformity, Skin: Negative for injury, rash, and discoloration, Neuro: Negative for headache, weakness, numbness, tingling, and seizure, Psych: Negative for depression, anxiety, Allergy/Immunology: Negative for hives, rash, and allergies Endocrine: Negative for neck swelling, polydipsia, polyuria, polyphagia, and weight changes Hematologic/Lymphatic: Negative for swollen nodes, abnormal bleeding, and unusual bruising Exam: 02:48 Constitutional: This is a well developed, well nourished patient who is awake, alert, sp4 and in no acute distress. Head/Face: Normocephalic, atraumatic. Eyes: Pupils equal round and reactive to light, extra-ocular motions intact. Lids and lashes normal. Conjunctiva and sclera are not injected. Cornea within normal limits. Periorbital areas with no swelling, redness, or edema. ENT: Nares patent. No nasal discharge, no septal abnormalities noted. Tympanic membranes are normal and external auditory canals are clear. Oropharynx with no redness, swelling, or masses, exudates, or evidence of obstruction, uvula midline. Mucous membranes moist. Neck: Trachea midline, no thyromegaly or masses palpated, and no cervical lymphadenopathy. Supple, full range of motion without nuchal rigidity, or vertebral point tenderness. Chest/axilla: Normal chest wall appearance and motion. Nontender with no deformity. No lesions are appreciated. Cardiovascular: Regular rate and rhythm with a normal S1 and S2. No gallops, murmurs, or rubs. Normal PMI, no JVD. No pulse deficits. Respiratory: Lungs have equal breath sounds bilaterally, clear to auscultation and percussion. No rales, rhonchi or wheezes noted. No increased work of breathing, no retractions or nasal flaring. Abdomen/GI: Soft, with normal bowel sounds. No distension or tympany. No guarding or rebound. Positive for diffuse abdominal discomfort Back: No spinal tenderness. No costovertebral tenderness. Skin: Warm, dry with normal turgor. Normal color with no rashes, no lesions, and no evidence of cellulitis. MS/ Extremity: Pulses equal, no cyanosis. Neurovascular intact. Full, normal range of motion. Neuro: Awake and alert, GCS 15, oriented to person, place, time, and situation. Cranial nerves II-XII grossly intact. Motor strength 5/5 in all extremities. Sensory grossly intact. Psych: Awake, alert, with orientation to person, place and time. Behavior, mood, and affect are within normal limits Vital Signs: 02:53 BP 106 / 69; Pulse 66; Resp 18; Temp 98.1; Pulse Ox 100% on R/A; Weight 58.97 kg; pf1 Height 5 ft. 0 in. ; Pain 5/10; 05:00 BP 99 / 65; Pulse 75; Resp 16; Pulse Ox 100% ; pf1 06:00 BP 100 / 57; Pulse 71; Resp 16; Pulse Ox 99% ; pf1 07:00 BP 107 / 65; Pulse 65; Resp 16; Pulse Ox 100% on R/A; pf1 02:53 Body Mass Index 25.39 (58.97 kg, 152.4 cm) pf1 02:53 Pain Scale: Adult pf1 MDM: 02:48 Patient medically screened. sp4 06:20 Data reviewed: vital signs, nurses notes, lab test result(s), radiologic studies, sp4 ultrasound. ED course: E) EXAM DESCRIPTION: Pelvis Complete RadLex: US PELVIS CLINICAL HISTORY: 37 years Female ABD PAIN COMPARISON: None TECHNIQUE: Transabdominal and endovaginal pelvic ultrasound was performed. FINDINGS: The uterus appears unremarkable and measures 4.8 cm longitudinally.. The endometrial stripe appears unremarkable and measures 6 mm in thickness. Nabothian cysts incidentally noted adjacent to the cervical canal.. The right ovary is not visualized. The left ovary measures 3.3 x 3.1 x 3.2 cm. Dominant follicle in the left ovary measuring approximately 2 cm in diameter. There is normal blood flow seen within the left ovary. Trace fluid in the pelvic cul-de-sac. IMPRESSION: 1. Right ovary not visualized. 2. Dominant follicle in the left ovary measuring approximately 2 cm in diameter for which no follow-up imaging is indicated. 3. No evidence of adnexal masses. 4. Trace fluid in the pelvic cul-de-sac, which may be physiologic. Electronically signed by: Robe Estrada MD 11/30/2022 5:49 AM CDT . 11/30 02:48 Order name: CBC with Diff; Complete Time: 06:19 sp4 11/30 02:48 Order name: CMP; Complete Time: 06:19 sp4 11/30 02:48 Order name: Lipase; Complete Time: 06:19 sp4 11/30 02:48 Order name: Test, Urine; Complete Time: 06:19 sp4 11/30 02:48 Order name: Urinalysis w/ reflexes; Complete Time: 06:19 sp4 11/30 09:37 Order name: HCG-Quantitative; Complete Time: 10:05 [facility] 11/30 03:56 Order name: US Pelvis Complete sp4 11/30 06:26 Order name: CT Abd/Pelvis - IV Contrast Only sp4 11/30 02:48 Order name: IV Saline Lock; Complete Time: 03:23 sp4 11/30 02:48 Order name: Labs collected and sent; Complete Time: 03:27 sp4 Administered Medications: 03:28 Drug: NS 0.9% IV 1000 ml Route: IV; Rate: 1 bolus; Site: right antecubital; 04:30 Follow up: Response: No adverse reaction; Marked relief of symptoms; IV Status: pf1 Completed infusion; IV Intake: 1000ml Disposition Summary: 11/30/22 10:08 Discharge Ordered Location: Home filemon Problem: new filemon Symptoms: have improved filemon Condition: Stable filemon Diagnosis - Abdominal pain, unspecified filemon - Incomplete spontaneous without complication filemon - Other ovarian cysts filemon Followup: filemon - With: Private Physician - When: 2 - 3 days - Reason: Recheck today's complaints, Continuance of care, Re-evaluation by your physician Followup: filemon - With: - When: 1 - 2 days - Reason: Recheck today's complaints, Re-evaluation by your physician Discharge Instructions: - Discharge Summary Sheet filemon - Abdominal Pain, Adult filemon - Ovarian Cyst filemon - Miscarriage filemon - Ovarian Cyst, [id number] filemon Forms: - Medication Reconciliation Form filemon - Thank You Letter filemon - Antibiotic Education filemon - Prescription Opioid Use filemon - Work release form iw - Family Work Release iw Prescriptions: - Zofran 4 mg Oral Tablet - take 1 tablet by ORAL route every 12 hours As needed; 20 tablet; Refills: 0, filemon Product Selection Permitted - dicyclomine 20 mg Oral Tablet - take 1 tablet by ORAL route 4 times per day; 29 tablet; Refills: 0, Product filemon Selection Permitted Signatures: Dispatcher [employer] EDMS Huy Nazario MD MD cha Garcia, Cindy RN RN Jose Allen MD MD sp4 Finley, Pamala RN pf1 Corrections: (The following items were deleted from the chart) 06:09 02:48 Abdomen Pelvis W Con+CT.RAD.BRZ ordered. EDMS EDMS
--- NOTE | 2022-11-30 10:31 | RAD REPORT ---
EXAM DESCRIPTION: CT - Abdomen Pelvis W Contrast - 11/30/2022 8:22 am CLINICAL HISTORY: Abdominal pain COMPARISON: Pelvic ultrasound November 30 2022 TECHNIQUE: Computed axial tomography of the abdomen and pelvis was obtained. 100 cc Isovue-300 is ad ministered intravenously. Oral contrast was given. All CT scans are performed using dose optimization technique as appropriate and may include automated exposure control or mA/KV adjustment according to patient size. FINDINGS: The exam was sent to [facility] to be dictated. As of now it has not been dictated by them. So I will d ictate .The liver, spleen, pancreas, adrenals and kidneys appear unremarkable. There is no evidence of diverticulitis 3.2 centimeter left ovarian cyst. It contains a 1.1 centimeter area of increased density which may re present blood. 3.5 centimeter right ovarian cyst. Small amount of free fluid within the pelvis with increased density probably blood IMPRESSION: 3.2 centimeter left ovarian cyst may have ruptured with small amount of blood within the pelvis. The examination was discussed with Doctor Nazario in the Emergency Room
[2022-11-30 11:01] VITALS: TEMP 98.1
[2022-11-30 11:17] VITALS: BP 107/65; O2SAT 100
--- NOTE | 2022-11-30 22:30 | RAD REPORT ---
EXAM DESCRIPTION: US - Pelvis Complete - 11/30/2022 7:01 am CLINICAL HISTORY: 37 years Female ABD PAIN COMPARISON: None TECHNIQUE: Transabdominal and endovaginal pelvic ultrasound was performed. FINDINGS: The uterus appears unremarkable and measures 4.8 cm longitudinally.. The endometrial strip e appears unremarkable and measures 6 mm in thickness. Nabothian cysts incidentally noted adjacent to the cervical canal.. The right ovary is not visualized. The left ovary measures 3.3 x 3.1 x 3.2 cm. Dominant follicle in the left ovary measuring approximate ly 2 cm in diameter. There is normal blood flow seen within the left ovary. Trace fluid in the pelvic cul-de-sac. IMPRESSION: 1. Right ovary not visualized. 2. Dominant follicle in the left ovary measuring approximately 2 cm in diameter for which no follow -up imaging is indicated. 3. No evidence of adnexal masses. 4. Trace fluid in the pelvic cul-de-sac, which may be physiologic. Electronically signed by: Robe Estrada MD 11/30/2022 5:49 AM CDT Due to temporary technical issues with the PACS/Fluency reporting system, reports are being signed by the in house radiologists without review as a courtesy to insure prompt reporting. The interpreting radiologist is fully responsible for the content of the report.
== END 2022-11-30 10:51 | disposition home or self-care (01) ==
LOC: ER 02:12
DX: O03.4 Incomplete spontaneous abortion without complication (principal); N83.299 Other ovarian cyst, unspecified side
CPT/HCPCS: 85025; 36415; 81025; 84702; 81003; 83690; 80053; 74177; 76856; 96360; 99284; Q9967; J7030